=== PATIENT | male | born 1975 | race Caucasian/White ===

== ENCOUNTER 2016-11-05 11:40 | Emergency (ER) | payer SELFPAY ==
[~2016-11-05] VITALS: Ht 167.6 cm; Wt 69.7 kg
[2016-11-05 11:46] VITALS: Ht 167.6 cm; Wt 69.7 kg
--- OUTSIDE RECORDS SUMMARY | 2016-11-05 11:47 | XMS REPORT | Referral Summary ---
Author Author [facility] Organization [facility] Address Unknown Phone Unavailable Care Team Providers Care Prosthetic Dentist Name Role Phone No PCP, Pt States Primary Care Physician [phone] Encounter VC Date(s): 03/14/16 - 03/15/16 [facility] [address] [place] [address] [phone] Discharge Diagnosis: Leukocytosis Discharge Diagnosis: Fever Discharge Disposition: 01-Home or Self Care Attending Physician: Erik Casiano MD Admitting Physician: Eden Pablo DO Vital Signs Most recent to 1 oldest [Reference Range]: Temperature Oral 36.6 degC [35.8-37.3 degC] (03/15/16 12:00 PM) Peripheral Pulse 60 bpm Rate [60-100 bpm] (03/15/16 12:00 PM) Respiratory Rate 18 br/min [14-20 br/min] (03/15/16 12:00 PM) Blood Pressure 161/79 mmHg [90-140/60-90 mmHg] *HI* (03/15/16 12:00 PM) SpO2 97 % (03/15/16 12:00 PM) Problem List Condition Effective Dates Status Health Status Informant Acute Active pain(Confirmed) Impaired skin Active integrity(Confirmed) 1 No Chronic Problems Active 1Problem added automatically by system based on initiation of Impaired Skin Integrity Plan of Care Allergies, Adverse Reactions, Alerts Substance Reaction Severity Status [place] Active Medications Excedrin 2 tabs, Oral, q6hr, Pain, 0 Refill(s) Start Date: 03/14/16 Status: Ordered ibuprofen 400 mg, Oral, q6hr, as needed for pain, 0 Refill(s) Start Date: 03/14/16 Status: Ordered Results Hematology Most recent to 1 oldest [Reference Range]: WBC [4.8-10.8 11.1 10*3/uL 10*3/uL] *HI* (03/15/16 4:51 AM) RBC [4.60-6.20] 3.86 *LOW* (03/15/16 4:51 AM) Hgb [14.0-18.0 11.4 gm/dL gm/dL] *LOW* (03/15/16 4:51 AM) Hct [42.0-52.0 %] 35.4 % *LOW* (03/15/16 4:51 AM) MCV [82.0-99.0 fL] 91.7 fL (03/15/16 4:51 AM) MCH [27.0-32.0 pg] 29.5 pg (03/15/16 4:51 AM) MCHC [32.0-36.0 32.2 gm/dL gm/dL] (03/15/16 4:51 AM) RDW [11.5-14.5 %] 14.7 % *HI* (03/15/16 4:51 AM) Platelet [150-400 220 10*3/uL 10*3/uL] (03/15/16 4:51 AM) MPV [9.4-12.3 fL] 11.2 fL (03/15/16 4:51 AM) Immature 0.4 % Granulocytes (03/15/16 4:51 AM) [0.0-1.0 %] Neutrophils [51-75 69 % %] (03/15/16 4:51 AM) Band Man [0-8 %] 6 % (03/14/16 5:51 PM) Lymphocytes [20-46 19 % %] *LOW* (03/15/16 4:51 AM) Monocytes [4-11 %] 10 % (03/15/16 4:51 AM) Eosinophils [0-4 %] 2 % (03/15/16 4:51 AM) Basophils [0-2 %] 0 % (03/15/16 4:51 AM) Neutro Absolute 7.68 10*3 [1.90-7.00 10*3] *HI* (03/15/16 4:51 AM) Lymph Absolute 2.05 10*3 [0.80-3.30 10*3] (03/15/16 4:51 AM) [place] Absolute 1.06 10*3 [0.30-1.00 10*3] *HI* (03/15/16 4:51 AM) Eos Absolute 0.20 10*3 [0.00-0.50 10*3] (03/15/16 4:51 AM) Baso Absolute 0.03 10*3 [0.00-0.20 10*3] (03/15/16 4:51 AM) Vacuoles Present *ABN* (03/14/16 5:51 PM) Nucleated RBC 0.0 /100 WBC Automated [0 /100 (03/15/16 4:51 AM) WBC] Differential Manual *ABN* (03/14/16 5:51 PM) Chemistry Most recent to 1 oldest [Reference Range]: Sodium Lvl [136-144 136 mEq/L mEq/L] (03/14/16 5:51 PM) Potassium Lvl 3.5 mEq/L [3.6-5.1 mEq/L] *LOW* (03/14/16 5:51 PM) Chloride [99-109 103 mEq/L mEq/L] (03/14/16 5:51 PM) CO2 [22-32 mEq/L] 23 mEq/L (03/14/16 5:51 PM) AGAP [3-20] 10 (03/14/16 5:51 PM) BUN [4-20 mg/dL] 13 mg/dL (03/14/16 5:51 PM) Glucose Lvl [70-100 108 mg/dL mg/dL] *HI* (03/14/16 5:51 PM) Creatinine Lvl 0.94 mg/dL [0.64-1.27 mg/dL] (03/14/16 5:51 PM) eGFR [>60] >60 1 (03/14/16 5:51 PM) Calcium Lvl 9.4 mg/dL [8.6-10.0 mg/dL] (03/14/16 5:51 PM) Albumin Lvl [3.5-4.8 4.2 gm/dL gm/dL] (03/14/16 5:51 PM) Total Protein 6.9 gm/dL [6.1-7.9 gm/dL] (03/14/16 5:51 PM) Globulin [1.9-4.3 2.7 gm/dL gm/dL] (03/14/16 5:51 PM) ALT [17-63 U/L] 13 U/L *LOW* (03/14/16 5:51 PM) AST [15-41 U/L] 25 U/L (03/14/16 5:51 PM) Alk Phos [26-104 66 U/L U/L] (03/14/16 5:51 PM) Bili Total [0.2-1.2 0.5 mg/dL 2 mg/dL] (03/14/16 5:51 PM) Lipase Lvl [8-48 15 U/L U/L] (03/14/16 5:51 PM) Lactic Acid Lvl 1.9 mEq/L [0.5-2.2 mEq/L] (03/14/16 8:09 PM) 1Result Comment: Multiply eGFR results by 1.21 for race. 2Result Comment: Naproxen, specifically the metabolite O-desmethylnaproxen, may cause spurious elevation in Total Bilirubin levels. Urinalysis Most recent to 1 oldest [Reference Range]: UA Color Yellow (03/14/16 5:51 PM) UA Appear Clear (03/14/16 5:51 PM) UA pH [5.0-8.0] 6.0 (03/14/16 5:51 PM) UA Leuk Est Negative [Negative] (03/14/16 5:51 PM) UA Nitrite Negative [Negative] (03/14/16 5:51 PM) UA Protein Negative [Negative] (03/14/16 5:51 PM) UA Glucose Negative [Negative] (03/14/16 5:51 PM) UA Ketones Negative [Negative] (03/14/16 5:51 PM) UA Urobilinogen Negative [<1.0] (03/14/16 5:51 PM) UA Bili [Negative] Negative (03/14/16 5:51 PM) UA Blood [Negative] Negative (03/14/16 5:51 PM) UA Spec Grav 1.015 [1.003-1.030] (03/14/16 5:51 PM) Type Clean Catch (03/14/16 5:51 PM) Microbiology Reports TEST: Blood Culture STATUS: Order in Progress BODY SITE: SOURCE: Blood COLLECTED DATE/TIME: 03/14/16 8:09 PM Blood Culture No growth after 12 hours incubation. Nursing unit will be called if growth is detected. - TEST: Blood Culture STATUS: Order in Progress BODY SITE: SOURCE: Blood COLLECTED DATE/TIME: 03/14/16 7:49 PM Blood Culture No growth after 12 hours incubation. Nursing unit will be called if growth is detected. - Immunizations Vaccine Date Refusal Reason tetanus/diphth/pertuss (Tdap) adult/adol 11/03/15 tetanus-diphth toxoids (Td) adult/adol 01/19/05 Procedures Procedure Date Related Diagnosis Body Site [id number] Social History Social History Type Response Smoking Status Current some day smoker; Type: Cigarettes; Tobacco use per day: Less than Pack Assessment and Plan No data available for this section
--- OUTSIDE RECORDS SUMMARY | 2016-11-05 11:47 | XMS REPORT | Referral Summary ---
Author Author [facility] Organization [facility] Address Unknown Phone Unavailable Care Team Providers Care Image Archivist Name Role Phone No PCP, States Primary Care Physician [phone] Encounter VC Date(s): 11/03/15 - 11/03/15 [facility] [address] [place] [address] Discharge Diagnosis: Puncture wound of finger, right Discharge Disposition: -Home or Self Care Attending Physician: Juan Evans MD Admitting Physician: Juan Evans MD Vital Signs Most recent to 1 oldest [Reference Range]: Temperature Oral 36.5 degC [35.8-37.3 degC] (11/03/15 10:10 PM) Peripheral Pulse 109 bpm Rate [60-100 bpm] *HI* (11/03/15 10:10 PM) Respiratory Rate 12 br/min [14-20 br/min] *LOW* (11/03/15 10:10 PM) Blood Pressure 148/81 mmHg [90-140/60-90 mmHg] *HI* (11/03/15 10:10 PM) SpO2 97 % (11/03/15 10:10 PM) Problem List No Known Problems Allergies, Adverse Reactions, Alerts No Known Allergies Medications ibuprofen 800 mg oral tablet 800 mg 1 tabs, Oral, q8hr, as needed for pain, # 21 tabs, 0 Refill(s) Start Date: 11/03/15 Stop Date: 11/10/15 Status: Ordered Keflex 500 mg oral capsule 500 mg 1 caps, Oral, q8hr, X 10 days, # 30 caps, 0 Refill(s) Start Date: 11/03/15 Stop Date: 11/13/15 Status: Ordered Results No data available for this section Immunizations Vaccine Date Refusal Reason tetanus/diphth/pertuss (Tdap) adult/adol 11/03/15 tetanus-diphth toxoids (Td) adult/adol 01/19/05 Procedures No data available for this section Social History Social History Type Response Smoking Status Current some day smoker; Type: Cigarettes; Tobacco use per day: Less than Pack Assessment and Plan No data available for this section
--- OUTSIDE RECORDS SUMMARY | 2016-11-05 11:47 | XMS REPORT | CCD ---
Author Author [facility], [facility] - Organization Unknown Address Unknown Phone Unavailable Allergies, Adverse Reactions, Alerts * No Latex Allergy. * No IV Contrast Allergy. * No Known Drug Allergies. Problems No relevant problems exist. Procedures No Procedures Documented. Medication Medication reconciliation has not been performed. Results LAB--CHEMISTRY from 09/21/2012 1:58 AMAnion Gap 9 (3-20 ) Albumin 4.0 g/dL (3.5-4.8 g/dL) Alkaline Phosphatase 67 U/L (26-104 U/L) ALT (SGPT) 20 U/L (17-63 U/L) AST (SGOT) 25 U/L (15-41 U/L) Bilirubin Total 0.4 mg/dL (0.2-1.2 mg/dL) BUN 11 mg/dL (4-20 mg/dL) Calcium 9.1 mg/dL (8.6-10.0 mg/dL) Chloride 108 mEq/L (99-109 mEq/L) CO2 26 mEq/L (22-32 mEq/L) Creatinine 0.88 mg/dL (0.64-1.27 mg/dL) eGFR >60 (>60- ) Globulin 2.3 g/dL (1.9-4.3 g/dL) Glucose 112 mg/dL H (70-100 mg/dL) Potassium 4.1 mEq/L (3.6-5.1 mEq/L) Sodium 143 mEq/L (136-144 mEq/L) Protein 6.3 g/dL (6.1-7.9 g/dL) Troponin <0.06 ng/mL (-<0.06 ng/mL) LAB--COAG STUDIES from 09/21/2012 1:58 AMD-Dimer Not Detected mg/L FEU (0.0-0.5 mg/L FEU) LAB--HEMATOLOGY from 09/21/2012 1:58 AMAbsolute Basophils 0.03 THOUS (0.00-0.20 THOUS) Absolute Eosinophils 0.65 THOUS H (0.00-0.50 THOUS) Absolute Lymphocytes 1.93 THOUS (0.80-3.30 THOUS) Absolute Monocytes 1.08 THOUS H (0.30-1.00 THOUS) Absolute Neutrophils 8.97 THOUS H (1.90-7.00 THOUS) HCT 46.1 % (42.0-52.0 %) HGB 14.9 g/dl (14.0-18.0 g/dl) MCH 29.3 pg (27.0-32.0 pg) MCHC 32.3 g/dL (32.0-36.0 g/dL) MCV 90.6 fL (82.0-99.0 fL) MPV 10.9 fL (9.4-12.3 fL) Platelet Count 225 K/uL (150-400 K/uL) RBC 5.09 M/uL (4.60-6.20 M/uL) RDW 14.8 % H (11.5-14.5 %) WBC 12.8 K/uL H (4.8-10.8 K/uL) Basophils 0 % (0-2 %) Eosinophils 5 % H (0-4 %) Immature Granulocytes 1.2 % H (0.0-1.0 %) Lymphocytes 15 % L (20-46 %) Monocytes 8 % (4-11 %) Nucleated RBC Automated 0.0 /100 WBC (0 /100 WBC) Neutrophils 70 % (51-75 %)
--- OUTSIDE RECORDS SUMMARY | 2016-11-05 11:47 | XMS REPORT | Continuity of Care Document ---
Author Author [facility] Organization [facility] Address Unknown Phone Unavailable Allergies Active Description Code Type Severity Reaction Onset Reported/Identified Relationship to Patient Clinical Status Yes No Known Allergies No Known Allergies Drug Allergy Unknown N/A 07/09/2010 Yes No Known Drug Allergies Drug Allergy 09/21/2012 Yes No Known Drug Allergies Drug Allergy N/A N/A 05/16/2013 Yes No Known Allergies NKMA N/A N/A 11/03/2015 Yes Lawrence NKMA N/A N/A 03/14/2016 Medications Medication Packaging Start Date Stop Date Route Dosage Sig tetanus/diphth/pertuss (Tdap) adult/adol(tetanus/diphth/ pertuss (Tdap) adult/adol 5 units-2.5 units-18.5 mcg/0.5 mL intramuscular suspension) 0.5 mL 11/0211/03/2015 IntraMuscular 0.5 mL, IntraMuscular, Once ibuprofen(ibuprofen) 1 tabs 11/03/2015 11/03/2015 Oral 600 mg 600 mg=1 tabs, Oral, Once cephalexin(Keflex 500 mg oral capsule) 1 caps 11/03/20152015 Oral 500 mg 500 mg=1 caps, Oral, q8hr, for 10 days, 30 caps, 0 Refill(s) ibuprofen(ibuprofen 800 mg oral tablet) 1 tabs 11/03/201511/09 Oral 800 mg 800 mg=1 tabs, Oral, q8hr, for 7 days, PRN: as needed for pain, 21 tabs, 0 Refill(s) Problems Date Dx Coded Attending Type Code Diagnosis Diagnosed By 09/21/2012 Jammie IQBAL, Camilo Cotton Final 305.1 TOBACCO USE DISORDER 09/21/2012 Camilo Agudelo MD Final 465.9 ACUTE URI NOS 09/21/2012 Camilo Agudelo MD Final 490 BRONCHITIS NOS 09/21/2012 Camilo Agudelo MD Final 511.0 PLEURISY W/O EFFUS OR TB 09/21/2012 Camilo Agudelo MD Final 784.0 HEADACHE 09/21/2012 Camilo Agudelo MD Admitting 786.05 SHORTNESS OF BREATH 05/16/2013 Oumar Cedillo MD Final 305.1 TOBACCO USE DISORDER 05/16/2013 Oumar Cedillo MD Final 686.9 LOCAL SKIN INFECTION NOS 05/16/2013 Oumar Cedillo MD Admitting 729.81 LIMB SWELLING 11/10/2015 Evans Howard Reason M79.644 Pain in right finger(s) 11/10/2015 Evans Howard Final S61.232A Puncture wound without foreign body of right middle finger without damage t 11/10/2015 Evans Howard Final W45.0XXA Nail entering through skin, initial encounter 11/10/2015 Evans Howard Final Y92.[address] in unspecified non- institutional (private) residence as t 11/10/2015 Evans Howard Final Z23 Encounter for immunization 03/17/2016 Erik Casiano Final D72.829 Elevated white blood cell count, unspecified 03/17/2016 Erik Casiano Final G89.29 Other chronic pain 03/17/2016 Erik Casiano Final K40.90 Unilateral inguinal hernia, without obstruction or gangrene, not specified 03/17/2016 Erik Casiano Final M54.16 Radiculopathy, lumbar region 03/17/2016 Erik Casiano Reason M54.5 Low back pain 03/17/2016 Erik Casiano Final M79.605 Pain in left leg 03/17/2016 Erik Casiano Final R30.0 Dysuria 03/17/2016 Erik Casiano S Final R35.0 Frequency of micturition 03/17/2016 Erik Casiano Final Z79.1 care home (current) use of non-steroidal anti-inflammatories (NSAID) 09/06/2016 Spencer Salinas DO A F D64.9 ANEMIA, UNSPECIFIED 09/06/2016 Marissa Salinas DOnt A F F11.10 OPIOID ABUSE, UNCOMPLICATED 09/06/2016 Spencer Salinas DO 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, UNCOMPLICATED 09/06/2016 Spencer Salinas DO F17.200 NICOTINE DEPENDENCE, UNSPECIFIED, UNCOMPLICATED 09/06/2016 Spencer Salinas DO L03.116 CELLULITIS OF LEFT LOWER LIMB 09/06/2016 Spencer Salinas DO M19.90 UNSPECIFIED OSTEOARTHRITIS, UNSPECIFIED SITE 09/06/2016 Spencer Salnias DO M25.512 PAIN IN LEFT SHOULDER 09/06/2016 Spencer Salinas DO N17.9 ACUTE KIDNEY FAILURE, UNSPECIFIED 09/06/2016 Spencer Salinas DO R80.9 PROTEINURIA, UNSPECIFIED 09/06/2016 Spencer Salinas DO R82.2 BILIURIA 09/06/2016 Spencer Salinas DO R82.4 ACETONURIA Procedures Code Description Performed By Performed On 86.04 OTHER SKIN SUBQ I D Melecio Tian DO J 05/19/2013 Results Test Result Range GRAM STAIN - 05/19/13 23:17 Uncategorized CBC W/DIFF - 09/02/16 23:50 EOSINOPHIL # 0.3 k/cumm 0.1-0.5 EOSINOPHIL % 1 % 2-4 GRANULOCYTE # 16.3 k/cumm 2.0-9.0 GRANULOCYTE % 84 % 50-75 LYMPHOCYTE # 1.1 k/cumm 1.0-4.0 LYMPHOCYTE % 5 % 20-30 MEAN CELL HGB 29.7 pg 27.0-33.0 MEAN CELL HGB CONCENTRATION 32.8 g/dL 32.0-37.0 MEAN CELL VOLUME 90.5 fl 80.0-100.0 MONOCYTE # 1.9 k/cumm 0.1-1.0 MONOCYTE % 10 % 4-6 RED BLOOD CELL 4.72 m/cumm 4.00-6.00 RED CELL DISTRIBUTION WIDTH 14.6 % 11.0- 15.6 WHITE BLOOD CELL 19.5 k/cumm 5.0-10.0 HEMOGLOBIN 14.0 gm/dL 14.0-18.0 HEMATOCRIT 42.7 % 40.0-54.0 PLATELET COUNT 271 k/cumm 150-400 SED RATE - 09/02/16 23:50 SED RATE 5 mm/hr 0-7 C REACTIVE PROTEIN - 09/02/16 23:50 C REACTIVE PROTEIN 13.5 mg/L < 8.[address]/DIFF - 09/06/16 00:00 FLUID APPEARANCE-UNCENTRIFUGED HAZY NOT DEFINED FLUID COLOR YELLOW NOT DEFINED FLUID LYMPH 67 % NOT DEFINED FLUID MONO 19 % NOT DEFINED FLUID RBC < 3000 #/cumm NOT DEFINED FLUID SEG 14 % NOT DEFINED FLUID TUBE # SYRINGE FLUID VOLUME 2.0 mL FLUID WBC 56 #/cumm NOT DEFINED FLUID CRYSTAL EXAM - 09/06/16 00:00 FLUID CRYSTAL EXAM POSITIVE NEGATIVE CBC W/DIFF - 09/06/16 20:40 EOSINOPHIL # 0.3 k/cumm 0.1-0.5 EOSINOPHIL % 2 % 2-4 GRANULOCYTE # 11.2 k/cumm 2.0-9.0 GRANULOCYTE % 76 % 50-75 LYMPHOCYTE # 1.5 k/cumm 1.0-4.0 LYMPHOCYTE % 10 % 20-30 MEAN CELL HGB 29.5 pg 27.0-33.0 MEAN CELL HGB CONCENTRATION 32.6 g/dL 32.0-37.0 MEAN CELL VOLUME 90.3 fl 80.0-100.0 MONOCYTE # 1.8 k/cumm 0.1-1.0 MONOCYTE % 12 % 4-6 RED BLOOD CELL 4.31 m/cumm 4.00-6.00 RED CELL DISTRIBUTION WIDTH 14.8 % 11.0- 15.6 WHITE BLOOD CELL 14.9 k/cumm 5.0-10.0 HEMOGLOBIN 12.7 gm/dL 14.0-18.0 HEMATOCRIT 38.9 % 40.0-54.0 PLATELET COUNT 282 k/cumm 150-400 SED RATE - 09/06/16 20:40 SED RATE 46 mm/hr 0-7 LACTIC ACID - 09/06/16 20:40 LACTIC ACID 1.5 mmol/L 0.5-2.0 METABOLIC PANEL, BASIC - 09/06/16 20:40 POTASSIUM 4.8 mmol/L 3.5-5.3 EST GFR (MDRD) > 60 mL/min > 59 ANION GAP 6 mmol/L 5-15 EST CrCl (CG) > 60 mL/min > 59 GLUCOSE 93 mg/dL 70-99 CALCIUM 9.1 mg/dL 8.5-10.1 BLOOD UREA NITROGEN 12 mg/dL 7-20 CREATININE 1.2 mg/dL 0.7-1.3 SODIUM 137 mmol/L 135-148 CHLORIDE 103 mmol/L 98-110 CARBON DIOXIDE 28 mmol/L 21-32 C REACTIVE PROTEIN - 09/06/16 20:40 C REACTIVE PROTEIN > 190.0 mg/L < 8.0 BLOOD CULTURE - 09/06/16 20:40 Microbiology BLOOD CULTURE - 09/06/16 20:40 Microbiology GRAM STAIN - 09/06/16 22:14 Microbiology CREATINE KINASE (CK/CPK) - 09/07/16 00:44 CREATINE KINASE (CK/CPK) 163 Units/L < 309 TRANSFERRIN - 09/07/16 00:44 TRANSFERRIN 198 mg/dL 200-360 IRON W/ BINDING CAPACITY - 09/07/16 00:44 IRON SATURATION 9 % SAT 11-46 IRON BINDING CAPACITY, TOTAL 249 mcg/dL 250-450 IRON 23 mcg/dL 35-150 FERRITIN - 09/07/16 00:44 FERRITIN 442 ng/mL 26-388 VITAMIN B12 - 09/07/16 00:44 VITAMIN B12 275 pg/mL 211-911 FOLIC ACID,SERUM - 09/07/16 00:44 FOLIC ACID,SERUM 4.7 ng/mL > 3.4 HIV - 09/07/16 00:44 AB HIV 1 2 NEGATIVE NEGATIVE HIV 1 P24 AG NEGATIVE NEGATIVE HEMOGLOBIN A1C - 09/07/16 00:44 HEMOGLOBIN A1C 5.7 % < 5.7 URINALYSIS, ROUTINE - 09/07/16 02:45 UA LEUKOCYTE ESTERASE DIPSTICK NEGATIVE NEGATIVE UA NITRITE DIPSTICK NEGATIVE NEGATIVE UA PROTEIN DIPSTICK TRACE NEGATIVE UA GLUCOSE DIPSTICK NEGATIVE NEGATIVE UA KETONE DIPSTICK TRACE NEGATIVE UA UROBILINOGEN DIPSTICK 2+ NORMAL UA BILIRUBIN DIPSTICK POSITIVE NEGATIVE UA BLOOD DIPSTICK NEGATIVE NEGATIVE UA SPECIFIC GRAVITY 1.031 1.015-1.025 UR PH 5.0 5.0-7.0 UA MICROSCOPIC - 09/07/16 02:45 UA BACTERIA 1+ NEGATIVE UA EPITHELIAL CELLS 1+ epi/hpf 0 - 1+ UA HYALINE CAST 0-1 cast/lpf 0 - 1 UA MUCUS 4+ NEG TO 1+ UA RBC 0 rbc/hpf 0 - 3 UA VOLUME FOR EXAM 12.0 mL (12mL STD) UA WBC 0 wbc/hpf 0 - 5 UR DRUGS OF ABUSE SCREEN - 09/07/16 02:45 UR AMPHETAMINES SCREEN POS (>1000 ng/mL) NEGATIVE UR BARBITURATE SCREEN NEG (< 200 ng/mL) NEGATIVE DRUGS OF ABUSE SCREEN COMMENT UR OPIATES SCREEN POS (> 300 ng/mL) NEGATIVE UR PHENCYCLIDINE (PCP) SCREEN NEG (< 25 ng/mL) NEGATIVE UR CANNABINOIDS (THC) SCREEN NEG (< 50 ng/mL) NEGATIVE UR COCAINE METABOLITE SCREEN NEG (< 300 ng/mL) NEGATIVE UR METHADONE SCREEN NEG (< 300 ng/mL) NEGATIVE UR BENZODIAZEPINE SCREEN NEG (< 200 ng/mL) NEGATIVE CBC W/DIFF - 09/07/16 06:09 EOSINOPHIL # 0.6 k/cumm 0.1-0.5 EOSINOPHIL % 6 % 2-4 GRANULOCYTE # 6.4 k/cumm 2.0-9.0 GRANULOCYTE % 63 % 50-75 LYMPHOCYTE # 1.8 k/cumm 1.0-4.0 LYMPHOCYTE % 18 % 20-30 MEAN CELL HGB 29.1 pg 27.0-33.0 MEAN CELL HGB CONCENTRATION 32.4 g/dL 32.0-37.0 MEAN CELL VOLUME 89.8 fl 80.0-100.0 MONOCYTE # 1.3 k/cumm 0.1-1.0 MONOCYTE % 13 % 4-6 RED BLOOD CELL 3.64 m/cumm 4.00-6.00 RED CELL DISTRIBUTION WIDTH 14.9 % 11.0- 15.6 WHITE BLOOD CELL 10.1 k/cumm 5.0-10.0 HEMOGLOBIN 10.6 gm/dL 14.0-18.0 HEMATOCRIT 32.7 % 40.0-54.0 PLATELET COUNT 286 k/cumm 150-400 METABOLIC PANEL, COMPREHN - 09/07/16 06:09 POTASSIUM 3.8 mmol/L 3.5-5.3 EST GFR (MDRD) > 60 mL/min > 59 ANION GAP 5 mmol/L 5-15 EST CrCl (CG) > 60 mL/min > 59 GLUCOSE 102 mg/dL 70-99 CALCIUM 8.1 mg/dL 8.5-10.1 BLOOD UREA NITROGEN 15 mg/dL 7-20 CREATININE 0.9 mg/dL 0.7-1.3 SODIUM 141 mmol/L 135-148 CHLORIDE 107 mmol/L 98-110 AST/SGOT 22 Units/L 10-37 ALT/SGPT 28 Units/L < 66 CARBON DIOXIDE 29 mmol/L 21-32 TOTAL PROTEIN 6.4 gm/dL 6.4-8.2 ALBUMIN 2.6 gm/dL 3.4-5.0 BILI TOTAL 0.1 mg/dL 0.0-1.0 ALKALINE PHOSPHATASE TOTAL 88 IU/L 45- 117 BILI CONJUGATED - 09/07/16 06:09 BILI CONJUGATED < 0.1 mg/dL 0.0-0.3 Encounters ACCT No. Visit Date/Time Discharge Status Pt. Type Provider Facility Loc./Unit Complaint [id number] 05/16/2013 21:55:00 2012 22:32:00 DIS Emergency Mamadou IQBAL, Oumar Parker [facility] [id number] 09/21/2012 00:59:00 2012 03:28:00 DIS Emergency Jammie IQBAL, Camilo Cotton [facility]
--- OUTSIDE RECORDS SUMMARY | 2016-11-05 11:54 | XMS REPORT | CCD ---
Author Author [facility], [facility] - Organization Unknown Address Unknown Phone Unavailable [...]
--- OUTSIDE RECORDS SUMMARY | 2016-11-05 11:54 | XMS REPORT | Continuity of Care Document ---
Author Author [facility] Organization [facility] Address Unknown Phone Unavailable Allergies Active Description Code Type Severity Reaction Onset Reported/Identified Relationship to Patient Clinical Status Yes No Known Allergies No Known Allergies Drug Allergy Unknown N/A 07/09/2010 Yes No Known Drug Allergies Drug Allergy 09/21/2012 Yes No Known Drug Allergies Drug Allergy N/A N/A 05/16/2013 Yes No Known Allergies NKMA N/A N/A 11/03/2015 Yes [place] NKMA N/A N/A 03/14/2016 Medications Medication Packaging [...] of micturition 03/17/2016 Erik Casiano Final Z79.1 longterm (current) use of non-steroidal anti-inflammatories (NSAID) 09/06/2016 [...] M19.90 UNSPECIFIED OSTEOARTHRITIS, UNSPECIFIED SITE 09/06/2016 Spencer Salinas DO M25.512 PAIN IN LEFT SHOULDER 09/06/2016 [...] Status Pt. Type Provider Facility Loc./Unit Complaint [id number] 05/16/2013 21:55:00 2012 22:32:00 DIS Emergency Mamadou IQBAL, Oumar Parker [facility] [id number] 09/21/2012 00:59:00 2012 03:28:00 DIS Emergency Jammie IQBAL, Camilo Cotton [facility]
[2016-11-05] MEDS ORDERED: NO ROUTINE MEDS (11:58)
[2016-11-05] MEDS ORDERED: LORA10TA44 PO (11:58)
[2016-11-05] MEDS ORDERED: IBUP-1724 PO (11:58)
--- NOTE | 2016-11-05 12:09 | NUR ---
PROVIDER DR THIBODEAUX AT BEDSIDE
[2016-11-05] MEDS: TETRACAINE 0.5% EYE DROPS 4ml BOTTLE LEFT EYE ONE (12:12)
[2016-11-05] MEDS: FLUORESCEIN SODIUM 1 MG/STRIP LEFT EYE ONE (12:12)
--- NOTE | 2016-11-05 12:29 | ERPDOC ---
Departure Disposition Decision Date: November 05, 2016 Disposition Decision Time: 12:33 Disposition: 01 DISCHARGED HOME, SELF-CARE Impression Impression Impression: Primary Impression: Corneal abrasion Additional Impression: Conjunctivitis Severity: Moderate Condition: Improved Seen By: Physician only Patient Instructions: Corneal Abrasion (ED) Problems/Meds/Labs Reviewed?: Yes Medications reviewed and manag: Yes Additional Instructions: Ointment to be placed 3 times daily to the left eye. Follow-up with ophthalmology on Monday. Return to the emergency department immediately if you have any vision changes. Follow up care ordered?: Yes Mental Status: Alert, Oriented Scripts Tobramycin Sulfate/Dexameth (Tobradex Eye Ointment) 7 Applic/3.5 G Oint 1 APPLIC OP TID for 7 Days, #3.5 GM Prov: RHONDA THIBODEAUX MD 11/05/16 [facility] - EE General General Chief Complaint: Eye Problems Stated Complaint: SOMETHING IN LFT EYE-1WK Time Seen by Provider: 11:46 HPI - EENT General Initial Comments 41-year-old gentleman presents with foreign body in left eye. Patient was getting ready to shower night, pulled her sugar up over his head and had quite a bit of dirt fall off the shirt into his face and eyes. The right eye is able to rub clean. The left eye AK-Pred being out of it did not feel like he was able to get anything out of it. He got in the shower and ran the shower directly on the eyes he held it open and this also did not solve the problem. He noticed discharge from the eye last night which crusted in his eyelashes. He still feels like something is in the upper outer portion of the eye. He works as a metal fabricator welder, he gets a lot of slight and catracho on his shirt. He was wearing his mask while welding, initially thought this might be a flash burn, but is not acting like it now. Allergies: Coded Allergies: No Known Allergies (Unverified , 11/05/16) Past History Past Medical History Pt denies signifigant PMH Surgical History Denies Surgeries Social History Smoking Status: Never smoker Substance Use Type: does not use Record Review Pertinent history updated: Yes Review of Systems Eyes General: see HPI Lids/Accessories: see HPI Vision: see HPI Neurological General: see HPI All other Systems All Other Systems: Reviewed and Negative Physical Exam General General Nourishment: well nourished, well developed, appears stated age Distress Description Pain in the eye Vitals and Pain First Documented Vital Signs Date Time Temp Pulse Resp B/P Pulse Ox O2 Delivery O2 Flow Rate FiO2 11/05/16 11:46 98.7 104 17 134/71 94 Room Air Weight: Kilograms: 69.700 Height (feet): 5 Height (inches): 6.00 Triage Pain Scale: Normal Exams: Eyes: Pupils are PERRLA w/ EOMI, No scleral icterus, irritation, or foreign bodies noted Neck: Full range of motion, without adenopathy, JVD, bruits or thyromegaly Chest/Resp: Clear all vieira, with good airflow, and symmetry bilaterally CV: Regular rate and rhythm, without murmur or gallop, Pulses 2+ all extremities, capillary refill, <2 seconds all ext., no pedal edema noted Abdomen: Bowel sounds positive, soft, non-tender, non-distended, no hepatosplenomegaly, masses or bruits noted Neurologic: Patient is alert, and oriented, cranial nerves, motor/sensory/ cerebellar, exams w/o gross deficits, to observation Psychiatric: Patient exhibits, appropriate attention, emotion and affect Eyes (brief) Comments Very careful exam of I performed. No foreign body noted. Fluorescein dye test was performed after tetracaine drops placed in eye. With Wood's lamp, scratch was noted that her quadrant the eye on cornea Differential Diagnoses Considering: Abrasion, Corneal Foreign Body, Other (corneal abrasion and conjunctival abrasion/burn) Progress Progress Progress Patient appears to have corneal abrasion. Probable conjunctivitis as well. He' ll be started on Ciprodex, and instructions to follow up with ophthalmology on Monday. We did discuss that right now I see no severe damage to the eye, however I do want a specialist to look at the eye. He did agree to follow up with ophthalmology on Monday. RHONDA THIBODEAUX MD November 05, 2016 12:29
[2016-11-05] MEDS ORDERED: TOBR3.5O2 OP (12:33)
[2016-11-05] MEDS ORDERED: OXYC1TAB8 PO (12:39)
[2016-11-05 12:43] VITALS: BP 213/73; PULSE 93; RESP 16; TEMP 98.3; O2SAT 97
--- NOTE | 2016-11-05 12:43 | NUR ---
DISMISSAL INSTRUCTIONS & RX REVIEWED WITH PT. HE VERBALIZES UNDERSTANDING. DISCHARGED AMB
== END 2016-11-05 12:43 | disposition home or self-care (01) ==
LOC: ED 11:40
DX: S05.02XA Injury of conjunctiva and corneal abrasion without foreign body, left eye, initial encounter (principal); H10.9 Unspecified conjunctivitis; X58.XXXA Exposure to other specified factors, initial encounter; Y93.9 Activity, unspecified; Y92.002 Bathroom of unspecified non-institutional (private) residence as the place of occurrence of the external cause; Y99.8 Other external cause status